=== PATIENT | male | born 1960 | race American Indian/Alaskan Native ===

== ENCOUNTER 2017-07-31 20:20 | Emergency (ER) | payer OTHER, BC ==
[2017-07-31 20:26] VITALS: BP 173/107; PULSE 91; RESP 16; TEMP 98; O2SAT 96
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
[2017-07-31] MEDS ORDERED: Naproxen 500 MG TAB PO STA (21:12)
[2017-07-31] MEDS ORDERED: Naproxen 500 MG TAB PO ONE (21:14)
--- NOTE | 2017-08-01 08:09 | RAD ---
PROCEDURE: Radiographs of the Left Shoulder HISTORY: shoulder injury COMPARISON: No prior. FINDINGS: BONES: No fracture or bony destructive lesion identified. Advanced degenerative changes seen the acromioclavicular joint with moderate degenerative changes present at the glenohumeral joint. Local soft tissues appear diffusely unremarkable. JOINTS: As above. SOFT TISSUES: As well. OTHER FINDINGS: None. IMPRESSION: No acute fracture or dislocation appreciated. Degenerative changes are advanced at the acromioclavicular joint and moderate at the glenohumeral joint.
== END 2017-07-31 21:48 | disposition home or self-care (01) ==
LOC: H.ER 20:20
DX: S49.92XA Unspecified injury of left shoulder and upper arm, initial encounter (principal); V43.52XA Car driver injured in collision with other type car in traffic accident, initial encounter; Y92.410 Unspecified street and highway as the place of occurrence of the external cause